=== PATIENT | female | born 1935 | race Caucasian/White ===

== ENCOUNTER 2022-01-02 11:10 | Emergency (ER) | payer MEDICARE, OTHER ==
[2022-01-02 13:12] LABS: BASOPHIL 0.4 % (0-2); EOSINOPHIL 1.8 % (0-7); HCT 42.3 % (37.0-47.0); HGB 14.1 g/dl (12.5-16.0); LYMPHOCYTE 28.4 % (15-48); MCH 32.2 pg (25.0-31.0); MCHC 33.3 g/dL (32.0-36.0); MCV 96.6 fL (78.0-100.0); MONOCYTE 8.8 % (0-12); MPV 11.5 fL (6.0-9.5); NEUTROPHIL 60.2 % (41-80); NRBC 0; PLT 174 K/uL (150-400); RBC 4.38 M/uL (4.20-5.40); RDW 13.8 % (11.5-14.0); WBC 8.4 K/uL (4.0-10.5)
[2022-01-02 13:40] LABS: CREATININE 0.86 mg/dL (0.51-0.95); POTASSIUM 4.1 mmol/L (3.5-5.1)
[2022-01-02 13:41] LABS: ALBUMIN 3.6 g/dL (3.4-5.0); BILIRUBIN - TOTAL 0.9 mg/dL (0.2-1.0); GLOBULIN (CALCULATION) 3.6 g/dL; TOTAL PROTEIN 7.2 g/dL (6.4-8.2)
[2022-01-02 13:56] LABS: CORONAVIRUS 2019 SARS-COV-2 NEGATIVE (NEGATIVE); INFLUENZA A NAA NEGATIVE (NEGATIVE)
[2022-01-02 14:16] LABS: BILIRUBIN NEGATIVE (NEGATIVE); BLOOD NEGATIVE Ery/uL (NEGATIVE); CLARITY CLEAR (CLEAR); COLOR YELLOW (YELLOW); GLUCOSE (U) NORMAL (NORMAL); LEUKOCYTES 1+ Leu/uL (NEGATIVE); NITRITE NEGATIVE (NEGATIVE); PROTEIN NEGATIVE (NEGATIVE); UROBILINOGEN 0.2 mg/dL (0.2-1.0); pH 7.5 (5.0-9.0)
== END 2022-01-02 16:03 | disposition home or self-care (01) ==
LOC: FER 11:10
PROVIDERS: Nurse Practitioner Family
DX: K42.9 Umbilical hernia without obstruction or gangrene (principal); K59.00 Constipation, unspecified; Z20.822 Contact with and (suspected) exposure to COVID-19; Z88.2 Allergy status to sulfonamides; Z88.5 Allergy status to narcotic agent
CPT/HCPCS: 36415; 71045; 80053; 81001; 84484; 85025; 85379; 93005; J1885; J7030; Q9967; U0002

== ENCOUNTER 2022-03-12 14:58 | Emergency (ER) | payer MEDICARE, OTHER ==
[2022-03-12 15:49] LABS: BASOPHIL 0.7 % (0-2); EOSINOPHIL 3.1 % (0-7); HCT 45.9 % (37.0-47.0); HGB 15.3 g/dl (12.5-16.0); LYMPHOCYTE 37.9 % (15-48); MCH 32.6 pg (25.0-31.0); MCHC 33.3 g/dL (32.0-36.0); MCV 97.7 fL (78.0-100.0); MONOCYTE 4.6 % (0-12); MPV 11.1 fL (6.0-9.5); NEUTROPHIL 53.3 % (41-80); NRBC 0; PLT 180 K/uL (150-400); RDW 14.1 % (11.5-14.0); WBC 7.1 K/uL (4.0-10.5)
[2022-03-12 16:17] LABS: ALBUMIN 3.4 g/dL (3.4-5.0); BILIRUBIN - TOTAL 0.7 mg/dL (0.2-1.0); BUN/CREAT RATIO (CALC) 16.4 RATIO; CREATININE 1.1 mg/dL (0.51-0.95); GLOBULIN (CALCULATION) 3.6 g/dL; POTASSIUM 3.9 mmol/L (3.5-5.1)
[2022-03-12] MEDS ORDERED: NORCO 5-325 TA1 EACH PO (19:19)
[2022-03-12] MEDS ORDERED: ONDANSETRON ODT4 MG PO (19:19)
[2022-03-12] MEDS ORDERED: LEVSIN-SL0.125 M1 SL (19:19)
[2022-03-12] MEDS ORDERED: CIPRO500 MG PO (19:41)
== END 2022-03-12 19:49 | disposition home or self-care (01) ==
LOC: FER 14:58
PROVIDERS: Internal Medicine
DX: K52.9 Noninfective gastroenteritis and colitis, unspecified (principal); I10 Essential (primary) hypertension; Z88.6 Allergy status to analgesic agent; Z88.5 Allergy status to narcotic agent; Z87.891 Personal history of nicotine dependence; Z79.899 Other long term (current) drug therapy; Z20.822 Contact with and (suspected) exposure to COVID-19
CPT/HCPCS: 36415; 70450; 80053; 85025; J3010; J7120; U0002